=== PATIENT | female | born 1995 | race Asian ===

== ENCOUNTER 2025-06-08 20:07 | Emergency (ER) | payer SELFPAY ==
[~2025-06-08] VITALS: Ht 157.5 cm; Wt 59.0 kg
[2025-06-08] MEDS ORDERED: Buprenorphine HCL/Naloxone HCL 8MG-2MG Tab SL ONE (20:35)
[2025-06-08] MEDS ORDERED: Ketorolac Tromethamine 30mg Vial IM ONE (22:15)
== END 2025-06-08 22:21 | disposition home or self-care (01) ==
LOC: ER 20:07
DX: S00.83XA Contusion of other part of head, initial encounter (principal); S30.811A Abrasion of abdominal wall, initial encounter; W10.9XXA Fall (on) (from) unspecified stairs and steps, initial encounter; Z79.899 Other long term (current) drug therapy; Z91.030 Bee allergy status
CPT/HCPCS: 96372; 99283-25; A9270; J1885